=== PATIENT | male | born 1950 | race Caucasian/White ===

== ENCOUNTER 2021-06-02 11:40 | Emergency (ER) | payer MEDICARE ==
[2021-06-02] VITALS (8 sets, daily range): BP systolic 166–205; BP diastolic 90–108
[~2021-06-02] VITALS: Ht 175.3 cm; Wt 100.0 kg
[2021-06-02] MEDS ORDERED: ASPIRIN81 MG PO (12:13)
[2021-06-02] MEDS ORDERED: SIMVASTATIN5 MG PO (12:14)
[2021-06-02] MEDS ORDERED: TOPROL XL25 M1 PO (12:14)
[2021-06-02] MEDS ORDERED: OMEPRAZOLE20 MG PO (12:15)
[2021-06-02] MEDS ORDERED: ENALAPRIL10 MG PO (12:15)
[2021-06-02 12:22] LABS: HEMATOCRIT 47.2 % (39.0-50.0); HEMOGLOBIN 16.3 g/dl (14.0-18.0); IMMATURE GRANULOCYTES 0.3 % (0.0-5.0); MEAN CELL VOLUME 93.3 fL CALC (80.0-100.0); MEAN CORPUSCULAR HGB 32.2 pG CALC (26.0-32.0); MEAN CORPUSCULAR HGB CONC 34.5 g/dL CAL (32.0-36.0); NEUT# 5.03 thou/uL (1.82-7.42); RED BLOOD COUNT 5.06 mill/uL (4.70-6.10); RED CELL DISTRI WIDTH 12.2 % (11.5-15.5)
[2021-06-02 12:24] LABS: GFR > 60 ML/MIN (>=60 (CALC)); GFR FOR AFR.AMER. > 60 ML/MIN (>=60 (CALC))
[2021-06-02 12:36] LABS: ALBUMIN 4.1 g/dL (3.2-5.0); ALKALINE PHOSPHATASE 85 u/l (38-126); ANION GAP 13 (6-22 (CALC)); BILIRUBIN, TOTAL 0.8 mg/dL (0.0-1.4); BUN 11 mg/dL (8-23); BUN/CREATININE RATIO 15 (12-20 (CALC)); CARBON DIOXIDE 23 mmol/l (22-30); CHLORIDE 103 mmol/l (95-108); CREATININE 0.8 mg/dL (0.7-1.3); GFR > 60 ML/MIN (>=60 (CALC)); GFR FOR AFR.AMER. > 60 ML/MIN (>=60 (CALC)); POTASSIUM 4.2 mmol/l (3.5-5.1); SGOT/AST 29 u/l (19-48); SODIUM 134 mmol/l (137-146); TOTAL PROTEIN 7.2 g/dL (6.3-8.2)
[2021-06-02] MEDS ORDERED: OMEPRAZOLE DR40 MG PO (13:03)
== END 2021-06-02 13:30 | disposition home or self-care (01) ==
LOC: ED 11:40
PROVIDERS: Family Medicine
DX: R10.13 Epigastric pain (principal); I10 Essential (primary) hypertension; K21.9 Gastro-esophageal reflux disease without esophagitis; Z87.442 Personal history of urinary calculi